=== PATIENT | female | born 1955 | race Caucasian/White ===

== ENCOUNTER 2021-07-02 11:39 | Outpatient (CLI) | payer MEDICARE | END 2021-07-02 11:40 | disposition home or self-care (01) | LOC: CSHMAMMO 11:39 | PROVIDERS: ATTEND Family Medicine | DX: Z12.31 Encounter for screening mammogram for malignant neoplasm of breast (principal); Z85.3 Personal history of malignant neoplasm of breast | CPT/HCPCS: 77063; 77067 ==

== ENCOUNTER 2022-04-16 09:46 | Outpatient (CLI) | payer MEDICARE | END 2022-04-16 09:47 | disposition home or self-care (01) | LOC: CSHULT 09:46 | PROVIDERS: ATTEND Family Medicine | DX: R10.9 Unspecified abdominal pain (principal); R16.0 Hepatomegaly, not elsewhere classified; R18.8 Other ascites | CPT/HCPCS: 76700 ==

== ENCOUNTER 2022-04-17 14:00 | Outpatient (CLI) | payer MEDICARE ==
[2022-04-17] MEDS ORDERED: Iopamidol 370 76% 100 ML VIAL ONE (14:43)
== END 2022-04-17 15:00 | disposition home or self-care (01) ==
LOC: CSHCT 14:00
PROVIDERS: ATTEND Family Medicine
DX: R93.5 Abnormal findings on diagnostic imaging of other abdominal regions, including retroperitoneum (principal); K76.9 Liver disease, unspecified; K86.2 Cyst of pancreas; R18.8 Other ascites
CPT/HCPCS: 74177; 82565; Q9967

== ENCOUNTER 2022-04-24 13:32 | Inpatient (IN) | payer MEDICARE ==
[2022-04-24 14:37] LABS: #Basophils 0.1 10x3/uL (0.0-0.2); #Monocytes 1.3 10x3/uL (0.0-1.1); #Neutrophils 10.3 10x3/uL (1.5-8.4); %Basophils 0.4 % (0.0-2.0); %Eosinophils 0.3 % (0.0-6.0); %Lymphocytes 8.1 % (18.0-47.0); %Neutrophils 80.5 % (40.0-75.0); Hemoglobin 13.9 g/dL (12.0-15.5); Mean Corpuscular HGB CONC 34.5 g/dL (32.0-36.0); Platelet Count 252 10x3/uL (150-450); RBC Distribution Width 12.5 % (11.5-14.5); Red Blood Cell (RBC) Count 4.63 10x6/uL (3.90-5.03); White Blood Cell (WBC) Count 12.8 10x3/uL (3.5-10.5)
[2022-04-24 14:41] LABS: ALT (SGPT) 64 U/L (8-55); AST (SGOT) 47 U/L (5-34); Albumin 3.8 g/dL (3.4-4.8); Alkaline Phosphatase 235 U/L (40-110); Anion Gap 17 mmol/L (10-20); BUN (Urea Nitrogen) 11 mg/dL (9.8-20.1); Bilirubin, Total 1.1 mg/dL (0.2-1.2); Calc. Creatinine Clearance 0 mL/min (70-130); Calcium 8.9 mg/dL (7.8-10.44); Carbon Dioxide 23 mmol/L (23-31); Chloride 97 mmol/L (98-107); Estimated GFR 85; Globulin 2.7 g/dL (2.4-3.5); Glucose 230 mg/dL (80-115); Potassium 4.2 mmol/L (3.5-5.1); Protein, Total 6.5 g/dL (5.8-8.1); Sodium 133 mmol/L (136-145)
[2022-04-24 14:43] LABS: PTT 26.6 sec (22.0-33.0); Prothrombin Time 11.2 sec (9.5-12.1)
[2022-04-24 15:07] LABS: CKMB 2.3 ng/mL (0-6.6)
[2022-04-24] MEDS ORDERED: Famotidine/PF 20 mg/2ml Vial ONE (15:25)
[2022-04-24] MEDS ORDERED: methylPREDNISolone Sod Succ 40 MG VIAL ONE (15:26)
[2022-04-24] MEDS ORDERED: diphenhydrAMINE 50 MG/ML VIAL ONE (15:26)
[2022-04-24] MEDS ORDERED: HYDROcodone/Acetaminophen 5/325 mg Tablet ONE (16:08)
[2022-04-24] MEDS ORDERED: Fentanyl 100 MCG/2 ML VIAL ONE (17:50)
[2022-04-24 18:41] LABS: SARS-CoV-2 NAA Rapid Test Not Detected (NotDetected)
[2022-04-24] MEDS ORDERED: Electrolyte Replacement Protocol IVPB SCH (18:50)
[2022-04-24] MEDS ORDERED: Communication Order-Pharmacy FS ONE (18:53)
[2022-04-24] MEDS ORDERED: Nitroglycerin 0.4 MG TAB (25 Tab Bottle) SL PRN (18:54)
[2022-04-24] MEDS ORDERED: Ondansetron PF 4 MG/2 ML Vial IVP PRN (18:56)
[2022-04-24] MEDS ORDERED: Calcium Carbonate 500 MG ChewTAB PO PRN (18:56)
[2022-04-24] MEDS ORDERED: Acetaminophen 325 MG TAB PO PRN (18:56)
[2022-04-24] MEDS ORDERED: Ondansetron ODT 4 MG TAB PO PRN (18:56)
[2022-04-24] MEDS ORDERED: Heparin 10,000 UNITS/ 10 ML VIAL SLOW IVP SCH (19:00)
[2022-04-24] MEDS ORDERED: Sodium Chloride 0.9% 1,000 ML IV SCH ×2 (19:00→22:05)
[2022-04-24] MEDS ORDERED: ALPRAZolam 0.25 MG TAB PO PRN (19:08)
[2022-04-24] MEDS ORDERED: Zolpidem Tartrate 5 MG TAB PO PRN (19:12)
[2022-04-24] MEDS ORDERED: Fentanyl 100 MCG/2 ML VIAL SLOW IVP PRN (19:15)
[2022-04-24] MEDS ORDERED: cloNIDine 0.1 MG TAB PO PRN (19:21)
[2022-04-24] MEDS ORDERED: Tenecteplase 50 MG - STEMI KIT ONE (19:30)
[2022-04-24 19:37] LABS: Troponin I 0.106 ng/mL (< 0.028)
[2022-04-24 20:17] LABS: Hemoglobin 13.4 g/dL (12.0-15.5); Platelet Count 193 10x3/uL (150-450)
[2022-04-24] MEDS ORDERED: Famotidine/PF 20 mg/2ml Vial SLOW IVP SCH (21:00)
[2022-04-24] MEDS: Heparin 25,000 units/D5W 500 ML IVPB SCH (21:10)
[2022-04-24] MEDS: HYDROcodone/Acetaminophen 5/325 mg Tablet PO PRN (21:38)
[2022-04-24] MEDS: ALPRAZolam 0.5 MG TAB PO PRN (21:39)
[2022-04-24 22:01] LABS: Troponin I 0.098 ng/mL (< 0.028)
[2022-04-25 01:52] LABS: PTT Greater than 139.0 sec (22.0-33.0)
[2022-04-25 04:28] LABS: #Monocytes 0.7 10x3/uL (0.0-1.1); #Neutrophils 8.3 10x3/uL (1.5-8.4); %Basophils 0.1 % (0.0-2.0); %Monocytes 6.8 % (0.0-10.0); %Neutrophils 86.6 % (40.0-75.0); Mean Corpuscular HGB CONC 34.4 g/dL (32.0-36.0); Mean Corpuscular Hemoglobin 29.7 pg (27.0-33.0); Mean Corpuscular Volume 86.5 fl (81.6-98.3); Mean Platelet Volume 10.1 fl (7.4-10.4); Platelet Count 157 10x3/uL (150-450); RBC Distribution Width 12.4 % (11.5-14.5); Red Blood Cell (RBC) Count 4.37 10x6/uL (3.90-5.03); White Blood Cell (WBC) Count 9.6 10x3/uL (3.5-10.5)
[2022-04-25 04:40] LABS: ALT (SGPT) 55 U/L (8-55); AST (SGOT) 43 U/L (5-34); Albumin 3.2 g/dL (3.4-4.8); Alkaline Phosphatase 195 U/L (40-110); Anion Gap 18 mmol/L (10-20); BUN (Urea Nitrogen) 12 mg/dL (9.8-20.1); Bilirubin, Total 0.7 mg/dL (0.2-1.2); Calc. Creatinine Clearance 86 mL/min (70-130); Calcium 8.4 mg/dL (7.8-10.44); Carbon Dioxide 19 mmol/L (23-31); Chloride 101 mmol/L (98-107); Estimated GFR 82; Glucose 357 mg/dL (80-115); Phosphorus 4.2 mg/dL (2.3-4.7); Potassium 4.7 mmol/L (3.5-5.1); Protein, Total 6.2 g/dL (5.8-8.1); Sodium 133 mmol/L (136-145)
[2022-04-25] MEDS ORDERED: Dextrose 50% Abboject 50 ML SYRINGE IVP PRN (05:45)
[2022-04-25] MEDS ORDERED: Dextrose 5% in Water 1,000 ML IV PRN (05:45)
[2022-04-25] MEDS ORDERED: Magnesium 2 GM/50 ML(in water) 2 GM in Premix Bag 1 BAG IVPB SCH (06:00)
[2022-04-25] MEDS: HumaLOG 300 UNITS/3 ML VIAL SC PRN ×4 (06:25→20:47)
[2022-04-25] MEDS: Levothyroxine Sodium 88 MCG TAB PO SCH (06:26)
[2022-04-25] MEDS: HYDROcodone/Acetaminophen 5/325 mg Tablet PO PRN ×2 (08:09→20:49)
[2022-04-25] MEDS: ALPRAZolam 0.5 MG TAB PO PRN ×2 (11:52→20:49)
[2022-04-25] MEDS ORDERED: NPH, Human Insulin Isophane 300 UNIT/3 ML VIAL SC SCH (14:00)
[2022-04-25] MEDS: Heparin 25,000 units/D5W 500 ML IVPB SCH (20:48)
[2022-04-25] MEDS: Zolpidem Tartrate 5 MG TAB PO PRN (20:49)
[2022-04-26 05:24] VITALS: BMI 31.4
[2022-04-26] MEDS: HYDROcodone/Acetaminophen 5/325 mg Tablet PO PRN ×4 (05:41→23:40)
[2022-04-26] MEDS: Levothyroxine Sodium 88 MCG TAB PO SCH (05:41)
[2022-04-26 05:56] LABS: #Eosinphils 0.2 10x3/uL (0.0-0.5); #Monocytes 1.1 10x3/uL (0.0-1.1); #Neutrophils 9.6 10x3/uL (1.5-8.4); %Basophils 0.2 % (0.0-2.0); %Eosinophils 1.3 % (0.0-6.0); %Lymphocytes 11.3 % (18.0-47.0); %Monocytes 8.6 % (0.0-10.0); %Neutrophils 78.3 % (40.0-75.0); Hemoglobin 11.9 g/dL (12.0-15.5); Mean Corpuscular HGB CONC 34.2 g/dL (32.0-36.0); Mean Corpuscular Hemoglobin 30.1 pg (27.0-33.0); Mean Corpuscular Volume 87.9 fl (81.6-98.3); Mean Platelet Volume 10.2 fl (7.4-10.4); Platelet Count 204 10x3/uL (150-450); RBC Distribution Width 12.6 % (11.5-14.5); Red Blood Cell (RBC) Count 3.96 10x6/uL (3.90-5.03); White Blood Cell (WBC) Count 12.3 10x3/uL (3.5-10.5)
[2022-04-26 06:01] LABS: Anion Gap 16 mmol/L (10-20); BUN (Urea Nitrogen) 15 mg/dL (9.8-20.1); Calc. Creatinine Clearance 93 mL/min (70-130); Calcium 8.2 mg/dL (7.8-10.44); Carbon Dioxide 22 mmol/L (23-31); Chloride 101 mmol/L (98-107); Estimated GFR 91; Glucose 167 mg/dL (80-115); Potassium 3.8 mmol/L (3.5-5.1); Sodium 135 mmol/L (136-145)
[2022-04-26] MEDS: Senokot S 8.6-50 MG TAB PO PRN (09:05)
[2022-04-26] MEDS: ALPRAZolam 0.5 MG TAB PO PRN ×2 (09:05→23:40)
[2022-04-26] MEDS: HumaLOG 300 UNITS/3 ML VIAL SC PRN ×2 (11:45→16:03)
[2022-04-26] MEDS: Rosuvastatin 10 MG TAB PO SCH (21:41)
[2022-04-26] MEDS: Heparin 25,000 units/D5W 500 ML IVPB SCH (21:43)
[2022-04-26] MEDS: Zolpidem Tartrate 5 MG TAB PO PRN (23:40)
[2022-04-27] MEDS: Levothyroxine Sodium 88 MCG TAB PO SCH (06:07)
[2022-04-27] MEDS: HumaLOG 300 UNITS/3 ML VIAL SC PRN ×3 (06:07→18:33)
[2022-04-27 06:16] LABS: #Eosinphils 0.2 10x3/uL (0.0-0.5); #Monocytes 0.9 10x3/uL (0.0-1.1); #Neutrophils 7.6 10x3/uL (1.5-8.4); %Basophils 0.4 % (0.0-2.0); %Lymphocytes 9.5 % (18.0-47.0); %Monocytes 8.8 % (0.0-10.0); %Neutrophils 78.6 % (40.0-75.0); Hemoglobin 11.5 g/dL (12.0-15.5); Mean Corpuscular HGB CONC 33.9 g/dL (32.0-36.0); Mean Corpuscular Hemoglobin 30.2 pg (27.0-33.0); Mean Platelet Volume 10.2 fl (7.4-10.4); Platelet Count 204 10x3/uL (150-450); RBC Distribution Width 12.6 % (11.5-14.5); Red Blood Cell (RBC) Count 3.81 10x6/uL (3.90-5.03); White Blood Cell (WBC) Count 9.7 10x3/uL (3.5-10.5)
[2022-04-27] MEDS: HYDROcodone/Acetaminophen 5/325 mg Tablet PO PRN ×4 (06:23→23:36)
[2022-04-27 06:29] LABS: Anion Gap 17 mmol/L (10-20); BUN (Urea Nitrogen) 12 mg/dL (9.8-20.1); Calc. Creatinine Clearance 97 mL/min (70-130); Calcium 8.2 mg/dL (7.8-10.44); Carbon Dioxide 22 mmol/L (23-31); Chloride 99 mmol/L (98-107); Estimated GFR 95; Glucose 183 mg/dL (80-115); Potassium 3.8 mmol/L (3.5-5.1); Sodium 134 mmol/L (136-145)
[2022-04-27] MEDS: ALPRAZolam 0.5 MG TAB PO PRN ×2 (08:21→22:00)
[2022-04-27 12:14] LABS: Hemoglobin 11.9 g/dL (12.0-15.5); Platelet Count 227 10x3/uL (150-450)
[2022-04-27] MEDS ORDERED: HYDROcodone/Acetaminophen 5/325 mg Tablet ONE (12:30)
[2022-04-27] MEDS: Heparin 25,000 units/D5W 500 ML IVPB SCH (21:40)
[2022-04-27] MEDS: Senokot S 8.6-50 MG TAB PO PRN (21:41)
[2022-04-27] MEDS: Rosuvastatin 10 MG TAB PO SCH (21:41)
[2022-04-27] MEDS: Zolpidem Tartrate 5 MG TAB PO PRN (22:00)
[2022-04-28 05:07] LABS: #Basophils 0.1 10x3/uL (0.0-0.2); #Eosinphils 0.3 10x3/uL (0.0-0.5); #Monocytes 0.9 10x3/uL (0.0-1.1); #Neutrophils 8.1 10x3/uL (1.5-8.4); %Basophils 0.5 % (0.0-2.0); %Eosinophils 2.4 % (0.0-6.0); %Lymphocytes 11.4 % (18.0-47.0); %Monocytes 8.4 % (0.0-10.0); %Neutrophils 76.8 % (40.0-75.0); Hemoglobin 11.9 g/dL (12.0-15.5); Mean Corpuscular HGB CONC 34.3 g/dL (32.0-36.0); Mean Corpuscular Hemoglobin 30.1 pg (27.0-33.0); Mean Corpuscular Volume 87.6 fl (81.6-98.3); Platelet Count 210 10x3/uL (150-450); RBC Distribution Width 12.7 % (11.5-14.5); Red Blood Cell (RBC) Count 3.96 10x6/uL (3.90-5.03); White Blood Cell (WBC) Count 10.5 10x3/uL (3.5-10.5)
[2022-04-28 05:25] LABS: Anion Gap 16 mmol/L (10-20); BUN (Urea Nitrogen) 9 mg/dL (9.8-20.1); Calc. Creatinine Clearance 101 mL/min (70-130); Calcium 8.4 mg/dL (7.8-10.44); Carbon Dioxide 22 mmol/L (23-31); Chloride 100 mmol/L (98-107); Estimated GFR 96; Glucose 150 mg/dL (80-115); Potassium 3.7 mmol/L (3.5-5.1); Sodium 134 mmol/L (136-145)
[2022-04-28] MEDS: Levothyroxine Sodium 88 MCG TAB PO SCH (05:30)
[2022-04-28] MEDS: HYDROcodone/Acetaminophen 5/325 mg Tablet PO PRN ×4 (05:41→23:43)
[2022-04-28] MEDS: ALPRAZolam 0.5 MG TAB PO PRN ×2 (09:35→23:48)
[2022-04-28] MEDS ORDERED: Potassium Chloride 20 MEQ TAB PO SCH (10:15)
[2022-04-28] MEDS: HumaLOG 300 UNITS/3 ML VIAL SC PRN (12:44)
[2022-04-28] MEDS ORDERED: Morphine 2 MG/ML VIAL SLOW IVP PRN (18:43)
[2022-04-28] MEDS: Heparin 25,000 units/D5W 500 ML IVPB SCH (21:22)
[2022-04-28] MEDS: Senokot S 8.6-50 MG TAB PO PRN (21:23)
[2022-04-28] MEDS: Rosuvastatin 10 MG TAB PO SCH (21:24)
[2022-04-28] MEDS: Senokot S 8.6-50 MG TAB PO SCH (21:27)
[2022-04-28] MEDS: Zolpidem Tartrate 5 MG TAB PO PRN (23:48)
[2022-04-29 04:17] LABS: #Eosinphils 0.1 10x3/uL (0.0-0.5); #Neutrophils 9.5 10x3/uL (1.5-8.4); %Basophils 0.3 % (0.0-2.0); %Eosinophils 1.2 % (0.0-6.0); %Lymphocytes 8.1 % (18.0-47.0); %Monocytes 8.5 % (0.0-10.0); %Neutrophils 81.3 % (40.0-75.0); Mean Corpuscular HGB CONC 34.2 g/dL (32.0-36.0); Mean Corpuscular Hemoglobin 29.8 pg (27.0-33.0); Mean Corpuscular Volume 87.1 fl (81.6-98.3); Mean Platelet Volume 9.9 fl (7.4-10.4); Platelet Count 243 10x3/uL (150-450); RBC Distribution Width 12.8 % (11.5-14.5); Red Blood Cell (RBC) Count 4.03 10x6/uL (3.90-5.03); White Blood Cell (WBC) Count 11.7 10x3/uL (3.5-10.5)
[2022-04-29 04:30] LABS: Anion Gap 13 mmol/L (10-20); BUN (Urea Nitrogen) 10 mg/dL (9.8-20.1); Calc. Creatinine Clearance 104 mL/min (70-130); Calcium 8.5 mg/dL (7.8-10.44); Carbon Dioxide 23 mmol/L (23-31); Chloride 98 mmol/L (98-107); Estimated GFR 97; Glucose 147 mg/dL (80-115); Potassium 4.1 mmol/L (3.5-5.1); Sodium 130 mmol/L (136-145)
[2022-04-29] MEDS: HYDROcodone/Acetaminophen 5/325 mg Tablet PO PRN (04:45)
[2022-04-29] MEDS: Levothyroxine Sodium 88 MCG TAB PO SCH (04:46)
[2022-04-29] MEDS: Senokot S 8.6-50 MG TAB PO SCH (09:56)
[2022-04-29] MEDS ORDERED: Sodium Bicarbonate 2.5 MEQ/5 ML VIAL ONE ×2 (10:24→12:44)
[2022-04-29 11:53] LABS: BF Color Yellow; Body Fluid Source Ascites Body Fluid; Clarity Hazy (Clear); Tube # EDTA
[2022-04-29 12:11] LABS: PTT 27.1 sec (22.0-33.0); Prothrombin Time 11.1 sec (9.5-12.1)
[2022-04-29 12:42] LABS: BF Segmented Neutrophils 30 %; Cell Count Non Hematic 37 %; Eosinophils 1 %; Lymphocytes 31 %
[2022-04-29] MEDS ORDERED: Fentanyl 100 MCG/2 ML VIAL ONE (12:43)
[2022-04-29] MEDS ORDERED: Midazolam HCl 5 mg/5 ml Vial ONE (12:43)
[2022-04-29] MEDS ORDERED: Lidocaine 1% PF 5 ML VIAL ONE ×2 (12:44)
[2022-04-29] MEDS ORDERED: Morphine 4 MG/ML VIAL SLOW IVP PRN (14:15)
[2022-04-29 14:18] LABS: Hemoglobin 12.1 g/dL (12.0-15.5); Platelet Count 226 10x3/uL (150-450)
[2022-04-29] MEDS: ALPRAZolam 0.5 MG TAB PO PRN (14:19)
[2022-04-29] MEDS: Apixaban 5 MG TAB PO SCH (20:25)
[2022-04-29] MEDS: Rosuvastatin 10 MG TAB PO SCH (20:25)
[2022-04-30] MEDS: HYDROcodone/Acetaminophen 5/325 mg Tablet PO PRN (01:45)
[2022-04-30 04:13] LABS: #Eosinphils 0.2 10x3/uL (0.0-0.5); #Monocytes 1.2 10x3/uL (0.0-1.1); #Neutrophils 10.2 10x3/uL (1.5-8.4); %Basophils 0.2 % (0.0-2.0); %Eosinophils 1.4 % (0.0-6.0); %Lymphocytes 6.7 % (18.0-47.0); %Monocytes 9.6 % (0.0-10.0); %Neutrophils 81.4 % (40.0-75.0); Hemoglobin 12.1 g/dL (12.0-15.5); Mean Corpuscular Hemoglobin 29.8 pg (27.0-33.0); Mean Corpuscular Volume 87.7 fl (81.6-98.3); Mean Platelet Volume 9.6 fl (7.4-10.4); Platelet Count 238 10x3/uL (150-450); RBC Distribution Width 12.9 % (11.5-14.5); Red Blood Cell (RBC) Count 4.06 10x6/uL (3.90-5.03); White Blood Cell (WBC) Count 12.5 10x3/uL (3.5-10.5)
[2022-04-30 04:28] LABS: Anion Gap 14 mmol/L (10-20); BUN (Urea Nitrogen) 8 mg/dL (9.8-20.1); Calc. Creatinine Clearance 102 mL/min (70-130); Calcium 8.1 mg/dL (7.8-10.44); Carbon Dioxide 22 mmol/L (23-31); Chloride 99 mmol/L (98-107); Estimated GFR 97; Glucose 142 mg/dL (80-115); Potassium 4.2 mmol/L (3.5-5.1); Sodium 131 mmol/L (136-145)
[2022-04-30] MEDS: Levothyroxine Sodium 88 MCG TAB PO SCH (06:07)
[2022-04-30] MEDS: Apixaban 5 MG TAB PO SCH (09:26)
[2022-04-30] MEDS: ALPRAZolam 0.5 MG TAB PO PRN (10:22)
[2022-04-30 12:06] VITALS: BP 105/65; TEMP 97.6
== END 2022-04-30 15:35 | disposition home or self-care (01) | DRG 175 ==
LOC: CSHERS 13:32 → CSHICU 20:10 → CSHTELE 04-26 18:42
PROVIDERS: ADMIT Internal Medicine; ATTEND Internal Medicine
PROC: 3E03317 Introduction of Other Thrombolytic into Peripheral Vein, Percutaneous Approach (ICD-10-PCS; 2022-04-24)
PROC: 0FB13ZX Excision of Right Lobe Liver, Percutaneous Approach, Diagnostic (ICD-10-PCS; principal; 2022-04-29)
PROC: 0W9G3ZZ Drainage of Peritoneal Cavity, Percutaneous Approach (ICD-10-PCS; 2022-04-29)
DX: I26.09 Other pulmonary embolism with acute cor pulmonale (principal); R18.8 Other ascites; I10 Essential (primary) hypertension; J30.2 Other seasonal allergic rhinitis; E03.9 Hypothyroidism, unspecified; E78.5 Hyperlipidemia, unspecified; F41.9 Anxiety disorder, unspecified; F51.04 Psychophysiologic insomnia; I50.810 Right heart failure, unspecified; R00.0 Tachycardia, unspecified; E11.65 Type 2 diabetes mellitus with hyperglycemia; K76.89 Other specified diseases of liver; K86.89 Other specified diseases of pancreas; Z20.822 Contact with and (suspected) exposure to COVID-19; Z88.8 Allergy status to other drugs, medicaments and biological substances; Z88.0 Allergy status to penicillin; Z79.899 Other long term (current) drug therapy; Z92.21 Personal history of antineoplastic chemotherapy; Z92.3 Personal history of irradiation; Z79.890 Hormone replacement therapy; Z85.3 Personal history of malignant neoplasm of breast; Z88.1 Allergy status to other antibiotic agents; Z98.890 Other specified postprocedural states; Z88.2 Allergy status to sulfonamides; Z82.0 Family history of epilepsy and other diseases of the nervous system
CPT/HCPCS: 36415; 36416; 47000; 49083; 71045; 71275; 74018; 80048; 80053; 82042; 82553; 83605; 83615; 83690; 83735; 83880; 84100; 84157; 84484; 85014; 85018; 85025; 85049; 85610; 85730; 88112; 88305; 88307; 88333; 88341; 88342; 88365; 89051; 93005; 93010; 93306; 93970; 94760; 96374; 96375; J1200; J1644; J1815; J2250; J2270; J2405; J2920; J3010; J3101; J3475; J7050; S0028; U0002

== ENCOUNTER 2022-05-04 12:04 | Emergency (ER) | payer MEDICARE ==
[~2022-05-04 12:04] MED LIST: Iopamidol 370 76% 100 ML VIAL ONE
[2022-05-04 13:20] LABS: #Basophils 0.1 10x3/uL (0.0-0.2); #Eosinphils 0.1 10x3/uL (0.0-0.5); #Monocytes 1.3 10x3/uL (0.0-1.1); #Neutrophils 12.8 10x3/uL (1.5-8.4); %Basophils 0.4 % (0.0-2.0); %Eosinophils 0.5 % (0.0-6.0); %Lymphocytes 4.3 % (18.0-47.0); %Monocytes 8.3 % (0.0-10.0); %Neutrophils 85.6 % (40.0-75.0); Hemoglobin 13.6 g/dL (12.0-15.5); Mean Corpuscular HGB CONC 34.1 g/dL (32.0-36.0); Mean Corpuscular Hemoglobin 29.6 pg (27.0-33.0); Mean Corpuscular Volume 86.9 fl (81.6-98.3); Mean Platelet Volume 10.1 fl (7.4-10.4); Platelet Count 436 10x3/uL (150-450); RBC Distribution Width 12.8 % (11.5-14.5); Red Blood Cell (RBC) Count 4.59 10x6/uL (3.90-5.03)
[2022-05-04 13:38] LABS: ALT (SGPT) 104 U/L (8-55); AST (SGOT) 109 U/L (5-34); Albumin 3.2 g/dL (3.4-4.8); Alkaline Phosphatase 425 U/L (40-110); Anion Gap 21 mmol/L (10-20); BUN (Urea Nitrogen) 15 mg/dL (9.8-20.1); Calc. Creatinine Clearance 0 mL/min (70-130); Calcium 8.3 mg/dL (7.8-10.44); Carbon Dioxide 18 mmol/L (23-31); Chloride 95 mmol/L (98-107); Estimated GFR 77; Globulin 2.8 g/dL (2.4-3.5); Glucose 188 mg/dL (80-115); Lipase 35 U/L (8-78); Potassium 4.6 mmol/L (3.5-5.1); Sodium 129 mmol/L (136-145)
[2022-05-04] MEDS ORDERED: Lidocaine 1% (PF) 30 ML VIAL ONE (15:08)
== END 2022-05-04 16:16 | disposition home or self-care (01) ==
LOC: CSHERS 12:04
DX: R18.8 Other ascites (principal); I10 Essential (primary) hypertension; E03.9 Hypothyroidism, unspecified
CPT/HCPCS: 49083; 71275; 74177; 80053; 83605; 83690; 84484; 85025; 93005; J2001; Q9967

== ENCOUNTER 2022-05-26 18:46 | Inpatient (IN) | payer MEDICARE ==
[2022-05-26 19:46] LABS: Hemoglobin 10.7 g/dL (12.0-15.5); Mean Corpuscular HGB CONC 34.9 g/dL (32.0-36.0); Mean Corpuscular Hemoglobin 29.6 pg (27.0-33.0); Mean Corpuscular Volume 84.8 fl (81.6-98.3); Mean Platelet Volume 10.3 fl (7.4-10.4); Platelet Count 167 10x3/uL (150-450); RBC Distribution Width 14.3 % (11.5-14.5); Red Blood Cell (RBC) Count 3.62 10x6/uL (3.90-5.03); White Blood Cell (WBC) Count 2.7 10x3/uL (3.5-10.5)
[2022-05-26 19:53] LABS: INR-International Normal Ratio 1.2; PTT 34.5 sec (22.0-33.0); Prothrombin Time 12.6 sec (9.5-12.1)
[2022-05-26 20:00] LABS: ALT (SGPT) 104 U/L (8-55); AST (SGOT) 101 U/L (5-34); Albumin 3.1 g/dL (3.4-4.8); Alkaline Phosphatase 1282 U/L (40-110); Anion Gap 19 mmol/L (10-20); BUN (Urea Nitrogen) 90 mg/dL (9.8-20.1); Bilirubin, Total 1.3 mg/dL (0.2-1.2); Calc. Creatinine Clearance 0 mL/min (70-130); Calcium 8.8 mg/dL (7.8-10.44); Carbon Dioxide 17 mmol/L (23-31); Chloride 94 mmol/L (98-107); Estimated GFR 33; Glucose 148 mg/dL (80-115); Potassium 5.6 mmol/L (3.5-5.1); Protein, Total 5.1 g/dL (5.8-8.1); Sodium 124 mmol/L (136-145)
[2022-05-26 20:02] LABS: MDiff Complete? YES
[2022-05-26 20:09] LABS: Band 9 % (5-11); Eosinophils 1 % (0-10); Lymphocytes 12 % (21-51); Monocytes 12 % (0-10); Neutrophil 65 % (42-75); Platelet Morphology Comment Appears Adequate; Reactive Lymphocytes 1 % (0-10)
[2022-05-26 20:10] LABS: RBC Morphology Normal
[2022-05-26] MEDS ORDERED: Apixaban 5 MG TAB PO SCH (21:15)
[2022-05-26 22:00] LABS: SARS-CoV-2 NAA Rapid Test Not Detected (NotDetected)
[2022-05-26] MEDS ORDERED: Zolpidem Tartrate 5 MG TAB PO PRN (22:03)
[2022-05-26] MEDS ORDERED: Calcium Carbonate 500 MG ChewTAB PO PRN (22:03)
[2022-05-26] MEDS ORDERED: Acetaminophen 325 MG TAB PO PRN (22:03)
[2022-05-26] MEDS ORDERED: Senokot S 8.6-50 MG TAB PO PRN (22:03)
[2022-05-26] MEDS ORDERED: Guaifenesin DM 100-10/5 ML UDCUP PO PRN (22:03)
[2022-05-26] MEDS ORDERED: Promethazine 25 MG TAB PO PRN (22:05)
[2022-05-26] MEDS ORDERED: Metoclopramide HCl 10 MG TAB PO PRN (22:05)
[2022-05-26] MEDS ORDERED: Calcium Carbonate 500 MG ChewTAB PO SCH (22:15)
[2022-05-26] MEDS ORDERED: Sodium Chloride 0.9% 500 ML IV SCH (22:15)
[2022-05-26] MEDS ORDERED: Simethicone Chewable 80 MG TAB PO SCH (22:15)
[2022-05-26] MEDS ORDERED: Famotidine 20 MG TAB PO SCH (22:15)
[2022-05-26] MEDS ORDERED: Sodium Chloride 1 GM TAB PO SCH (22:15)
[2022-05-26] MEDS ORDERED: ALPRAZolam 0.5 MG TAB PO PRN (22:16)
[2022-05-26] MEDS ORDERED: Apixaban 5 MG TAB ONE (22:22)
[2022-05-26] MEDS ORDERED: Famotidine/PF 20 mg/2ml Vial ONE (22:25)
[2022-05-26] MEDS ORDERED: Calcium Carbonate 500 MG ChewTAB ONE (22:46)
[2022-05-26] MEDS ORDERED: ALPRAZolam 0.5 MG TAB ONE (22:46)
[2022-05-26 22:51] LABS: CK (CPK) 44 U/L (29-168); Phosphorus 5.8 mg/dL (2.3-4.7); Uric Acid 10.9 mg/dL (2.6-6.0)
[2022-05-27] MEDS ORDERED: Albumin 25% 100 ML ONE ×2 (00:57→09:18)
[2022-05-27] MEDS: Albumin 25% 25 GM/100 ML BOT IVPB SCH ×2 (00:59→09:28)
[2022-05-27] MEDS ORDERED: Sodium Chloride Irrig Solution 250 ML BOT IR SCH (03:30)
[2022-05-27 04:11] LABS: Mean Corpuscular HGB CONC 34.2 g/dL (32.0-36.0); Mean Corpuscular Hemoglobin 29.5 pg (27.0-33.0); Mean Corpuscular Volume 86.1 fl (81.6-98.3); Mean Platelet Volume 10.3 fl (7.4-10.4); Platelet Count 140 10x3/uL (150-450); RBC Distribution Width 14.3 % (11.5-14.5); Red Blood Cell (RBC) Count 3.39 10x6/uL (3.90-5.03); White Blood Cell (WBC) Count 2.1 10x3/uL (3.5-10.5)
[2022-05-27 05:08] LABS: MDiff Complete? YES
[2022-05-27 05:14] LABS: Band 6 % (5-11); Eosinophils 5 % (0-10); Lymphocytes 19 % (21-51); Monocytes 19 % (0-10); Neutrophil 51 % (42-75)
[2022-05-27 05:15] LABS: Platelet Morphology Comment Appears Adequate; RBC Morphology Normal; Vacuoles SLIGHT
[2022-05-27 05:20] LABS: ALT (SGPT) 98 U/L (8-55); AST (SGOT) 111 U/L (5-34); Albumin 3.6 g/dL (3.4-4.8); Alkaline Phosphatase 1165 U/L (40-110); Anion Gap 18 mmol/L (10-20); BUN (Urea Nitrogen) 91 mg/dL (9.8-20.1); Bilirubin, Total 1.5 mg/dL (0.2-1.2); Calc. Creatinine Clearance 0 mL/min (70-130); Carbon Dioxide 18 mmol/L (23-31); Chloride 95 mmol/L (98-107); Estimated GFR 29; Globulin 2.1 g/dL (2.4-3.5); Glucose 120 mg/dL (80-115); Potassium 5.6 mmol/L (3.5-5.1); Protein, Total 5.7 g/dL (5.8-8.1); Sodium 125 mmol/L (136-145)
[2022-05-27] MEDS ORDERED: Levothyroxine Sodium 88 MCG TAB PO SCH (06:00)
[2022-05-27] MEDS ORDERED: Sodium Chloride 0.9% 1,000 ML IV SCH ×2 (06:15→14:28)
[2022-05-27] MEDS ORDERED: Apixaban 5 MG TAB ONE (08:37)
[2022-05-27] MEDS ORDERED: Apixaban 5 MG TAB PO SCH (09:00)
[2022-05-27] MEDS ORDERED: Famotidine 20 MG TAB PO SCH ×2 (09:00→21:00)
[2022-05-27] MEDS: Sodium Chloride 1 GM TAB PO SCH ×2 (09:10→15:39)
[2022-05-27] MEDS ORDERED: Sodium Bicarbonate 2.5 MEQ/5 ML VIAL ONE (10:17)
[2022-05-27] MEDS ORDERED: Ondansetron PF 4 MG/2 ML Vial ONE (10:17)
[2022-05-27] MEDS ORDERED: Lidocaine 1% PF 5 ML VIAL ONE (10:17)
[2022-05-27] MEDS ORDERED: Promethazine HCl 12.5 MG in Sodium Chloride 0.9% 50 ML IVPB PRN (10:19)
[2022-05-27] MEDS ORDERED: Promethazine HCl 25 MG/ML VIAL ONE (10:25)
[2022-05-27] MEDS ORDERED: Promethazine HCl 12.5 MG in Sodium Chloride 0.9% 50 ML IVPB SCH (10:30)
[2022-05-27] MEDS ORDERED: LOKELMA 10 GM PACKET PO SCH (11:00)
[2022-05-27 13:48] VITALS: BP 113/79
[2022-05-27 14:10] LABS: Anion Gap 19 mmol/L (10-20); BUN (Urea Nitrogen) 93 mg/dL (9.8-20.1); Calc. Creatinine Clearance 0 mL/min (70-130); Calcium 8.6 mg/dL (7.8-10.44); Carbon Dioxide 18 mmol/L (23-31); Chloride 97 mmol/L (98-107); Estimated GFR 29; Glucose 102 mg/dL (80-115); Potassium 5.2 mmol/L (3.5-5.1); Sodium 129 mmol/L (136-145)
[2022-05-27] MEDS ORDERED: Rosuvastatin 10 MG TAB PO SCH (21:00)
== END 2022-05-27 18:00 | disposition short-term general hospital (02) | DRG 597 ==
LOC: CSHERS 18:46 → CSHERHOLD 22:01
PROVIDERS: ADMIT Student in an Organized Health Care Education/Training Program; ATTEND Student in an Organized Health Care Education/Training Program
PROC: 0W9G3ZZ Drainage of Peritoneal Cavity, Percutaneous Approach (ICD-10-PCS; principal; 2022-05-27)
DX: C50.919 Malignant neoplasm of unspecified site of unspecified female breast (principal); E88.3 Tumor lysis syndrome; K76.7 Hepatorenal syndrome; C79.9 Secondary malignant neoplasm of unspecified site; E22.2 Syndrome of inappropriate secretion of antidiuretic hormone; N17.9 Acute kidney failure, unspecified; R18.0 Malignant ascites; J90 Pleural effusion, not elsewhere classified; J98.11 Atelectasis; N18.4 Chronic kidney disease, stage 4 (severe); E87.20 Acidosis, unspecified; Z20.822 Contact with and (suspected) exposure to COVID-19; E86.0 Dehydration; E87.5 Hyperkalemia; D63.1 Anemia in chronic kidney disease; D72.819 Decreased white blood cell count, unspecified; R53.81 Other malaise; E78.5 Hyperlipidemia, unspecified; E03.9 Hypothyroidism, unspecified; Z60.2 Problems related to living alone; Z86.711 Personal history of pulmonary embolism; Z91.041 Radiographic dye allergy status; Z79.01 Long term (current) use of anticoagulants; Z88.0 Allergy status to penicillin; Z88.2 Allergy status to sulfonamides; Z88.8 Allergy status to other drugs, medicaments and biological substances; Z79.899 Other long term (current) drug therapy; Z79.890 Hormone replacement therapy
CPT/HCPCS: 49083; 71045; 80053; 82550; 83615; 83880; 84100; 84550; 85025; 85610; 85730; 93005; J2405; J2550; J7030; J7050; P9047; S0028; U0002